=== PATIENT | male | born 2000 ===

== ENCOUNTER 2018-11-22 11:44 | Observation (INO) | payer MEDICAID ==
[2018-11-18 08:39] VITALS: BMI 29.5
[2018-11-22] MEDS ORDERED: ceFAZolin 2 GM in Sodium Chloride 0.9% 100 ML IVPB ONE (12:56)
[2018-11-22] MEDS ORDERED: Lidocaine 1% Inj (20ml) IJ ONE (12:56)
[2018-11-22] MEDS ORDERED: Bupivacaine 0.5% Inj(30mL) IJ ONE (12:56)
--- NOTE | 2018-11-22 13:00 | CP.SDSHP ---
Same Day Surgery H & P - History Proposed Procedure: Right flatfoot reconstruction Pre-Op Diagnosis: Right flatfoot deformity - Allergies Allergies: Allergies No Known Allergies Allergy (Verified 11/18/18 08:39) - Physical Exam Vital Signs: Vital Signs 11/22/18 11/22/18 11/22/18 12:14 12:20 12:28 Temperature 97.9 F 97.9 F Pulse Rate 63 67 67 Respiratory 18 18 Rate Blood Pressure 123/60 123/60 O2 Sat by Pulse 97 97 Oximetry - Date & Time Date: 11/22/18 Time: 13:00 Short Stay Discharge - Short Stay Discharge Admitting Diagnosis/Reason for Visit: M24.574/ M67.01/ M21.6X1/ M21.40/ Disposition: HOME/ ROUTINE
--- NOTE | 2018-11-22 13:03 | CP.PCM.PN ---
Subjective - Date & Time of Evaluation Date of Evaluation: 11/22/18 Time of Evaluation: 13:01 - Subjective Subjective: Podiatry progress note - Dr. Barnes 18M seen and evaluated in SDS preoperatively for right flat foot reconstruction. Patient is resting comfortably. States that he has been dealing with foot pain associated with his flat feet for his whole life. States he has tried conservative treatment including inserts and bracing but desired surgery. States that he has bilateral flat feet but his right is much more severe than his left. States his pain is worst when he is up on his feet walking or doing any activity. Denies n/v/f/c today and has no other acute complaints. NPO status confirmed with patient. Objective - Vital Signs/Intake and Output Vital Signs (last 24 hours): Temp Pulse Resp BP Pulse Ox 97.9 F 67 18 123/60 97 11/22/18 12:28 11/22/18 12:28 11/22/18 12:28 11/22/18 12:28 11/22/18 12:28 - Medications Medications: Current Medications Bupivacaine HCl (Marcaine 0.5%) 10 ml IJ ONCE ONE Stop: 11/22/18 12:57 Cefazolin Sodium 2 gm/ Sodium (Chloride) 100 mls @ 100 mls/hr IVPB ONCE ONE; Protocol Stop: 11/22/18 13:55 Lidocaine HCl (Lidocaine 1% (20ml)) 10 ml IJ ONCE ONE Stop: 11/22/18 12:57 - Constitutional Appears: Non-toxic - Head Exam Head Exam: ATRAUMATIC - Extremities Exam Additional comments: RLE focused VASC: DP and PT pulses palpable; cap refill <3 seconds to all digits; pedal hair present; no edema noted; temp gradient wnl DERM: no open lesions or wounds present; skin temp and turgor wnl ORTHO: flatfoot deformity noted; protrusion of the navicular preset; pain along PT tendon and at insertion; hindfoot valgus noted as well as forefoot abductus; medial column collapse NEURO: gross and protective sensation intact - Neurological Exam Neurological Exam: Alert, Awake, Oriented x3 - Psychiatric Exam Psychiatric exam: Normal Affect Assessment and Plan - Assessment and Plan (Free Text) Assessment: 18M with right flatfoot deformity Plan: Pt was seen and examined in SDS Pt NPO status was confirmed All pre-op testing and clearance in chart Pt has exhausted all conservative treatment at this time and is opting for surgical intervention Pt was explained procedure and post-operative course All pt's questions were answered to satisfaction No guarantees were made Pt understands all risks, benefits and complications of procedure Pt will follow-up with Dr. Barnes within 1 week of surgery
[2018-11-22] MEDS ORDERED: Bupivacaine HCl 0.5% PF (30 ml) Inj ONE ×2 (13:52→16:29)
[2018-11-22] MEDS ORDERED: Lactated Ringer's 1,000 ML IV ONE ×2 (14:02)
[2018-11-22] MEDS ORDERED: Propofol 10 mg/ml Inj (20 ML) ONE (14:04)
[2018-11-22] MEDS ORDERED: Midazolam 2 MG/2 ML VIAL ONE (14:05)
[2018-11-22] MEDS ORDERED: Succinylcholine Chloride 20 mg/ml Syr (5 ml) IV ONE (14:06)
[2018-11-22] MEDS ORDERED: Rocuronium 10 mg/ml (5 ml) ONE ×2 (14:16→17:02)
[2018-11-22] MEDS ORDERED: Desflurane Inhalation Anesthetic Liq (240 ml) ONE (15:14)
[2018-11-22] MEDS ORDERED: Dexamethasone 4 mg/1 ml ONE (15:48)
[2018-11-22] MEDS ORDERED: Lactated Ringer's 500 ML IV ONE (17:22)
[2018-11-22] MEDS ORDERED: Bupivacaine 0.25%-Epinephrine 1:200,000 (30 ml) Inj ONE (18:29)
[2018-11-22] MEDS ORDERED: Oxycodone/Acetaminophen 5/325 mg Tab PO PRN (19:05)
--- NOTE | 2018-11-22 19:11 | PCM.SURG1 ---
Surgeon's Initial Post Op Note - Surgeon's Notes Surgeon: Dr. Barnes DPM Enrollment Nurse: Dr. Yoo DPM, Dr. Morocho PGY3 Type of Anesthesia: General IV Pre-Operative Diagnosis: Right flatfoot deformity Operative Findings: see dictation Post-Operative Diagnosis: same Operation Performed: Right flatfoot reconstruction. Montgomery calcaneal osteotomy, medial calcaneal slide, FDL transfer, tendo-achilles lengthening Specimen/Specimens Removed: none Estimated Blood Loss: EBL {In ML}: 80 Blood Products Given: N/A Drains Used: Markus Al Post-Op Condition: Good Date of Surgery/Procedure: 11/22/18 Time of Surgery/Procedure: 19:12
[2018-11-22] MEDS ORDERED: HYDROmorphone 0.5 mg/0.5 ml ISec IVP PRN (19:53)
--- NOTE | 2018-11-22 19:55 | PCM.ANESB7 ---
Adductor Canal Block - Adductor Canal Block Date of Procedure: 11/22/18 Anesthiologist: Dr. Young Pre-Procedure Diagnosis: right flat foot Post-Procedure Diagnosis: right foot reconstruction Procedure Performed: Adductor Canal Block Right - Procedure Adductor Canal Block: The procedure was explained to the patient that it is for the post-operative pain management. Consent was obtained after a thorough discussion with the patient regarding the benefits and possible complications of local anesthetic adductor canal block of the femoral nerve. Standard monitors, as defined by the ASA, were applied to the patient. Time-out was held with the circulating nurse to confirm the appropriate block. After applying supplemental oxygen and administering IV Sedation as needed, the patient was placed in supine position with and the operative leg was flexed slightly at the knee and externally rotated as needed, and was kept anatomically stable. The mid-thigh of the _right lower extremity was exposed. The ultrasound transducer was then applied transversely along the medial aspect, about midway down the thigh and the femoral artery and vein were identified in appropriate relation with the sartorius muscle. At this time, the femoral nerve was visualized lateral to the femoral artery within the canal. After thorough identification, this area area was prepped with Chloroprep solution three times and 1 % Lidocaine was injected subcutaneously for topical anesthesia. At this point, a #22 gauge Stimuplex 4-inch needle was inserted in-plane in a [id number] orientation, and advanced toward the femoral nerve. Advancement was performed carefully under direct ultrasound visualization. Nerve stimulator was used and appropriate muscle twitch was obtained at current of __0.3___MA. After negative aspiration, __5___cc of _0.25____% ___bupiv was injected and this was followed with _25 cc of __0.5 % __bupiv . Under ultrasound guidance the local anesthetics were observed spreading around the femoral nerve. The needle was removed intact and sterile dressing was applied. The patient had stable vital signs, was conscious and in no apparent distress. The patient tolerated the femoral nerve block well with stable vital signs and was prepared for subsequent surgery
--- NOTE | 2018-11-22 19:57 | PCM.ANESB2 ---
Popliteal Nerve Block - Popliteal Nerve Block Date of Procedure: 11/22/18 Anesthesiologist: Dr. Young Pre-Procedure Diagnosis: right flat food Post-Procedure Diagnosis: right foot reconstruction Procedure Performed: Popliteal Nerve Block Right - Procedure Popliteal Nerve Block: This procedure was explained to the patient that it is for post-operative pain management. Consent was obtained after a thorough discussion with the patient regarding the benefits and possible complications of local anesthetic block of the sciatic nerve at the popliteal level. The patient was brought to the operating room and standard monitors are applied. Time-out was held with the circulating nurse to confirm the correct surgery and the appropriate block. After applying oxygen by nasal cannula and administering IV Sedation, patient's operative leg was gently raised and supported and the groove in between the biceps femoris and vastus lateralis muscles was carefully palpated. The skin approximately 8cm above the popliteal crease was then marked. The ultrasound transducer was then applied to the posterior thigh approximately 8cm above the popliteal crease in the transverse plane and the sciatic nerve before its division was visualized lateral to the popliteal artery and in between the bicep femoris and semimembranosus/semitendinosus muscles. After identification, the lateral portion of the thigh was prepped with Betadine solution three times and Lidocaine 1% was injected subcutaneously for topical anesthesia. At this point, a # 21 gauge Stimuplex insulated 4 inch needle was inserted into pre-marked area and advanced in a perpendicular direction. The needle was inserted above the ultrasound transducer in-plane towards the sciatic nerve in a [id number] direction. Needle advancement was performed carefully under direct ultrasound visualization. Nerve stimulator was used and dorsiflexion of the _right____ foot was elicited at a current of _0.3____ MA. After repeated negative aspiration, __5___cc of _0.25____ % ___bupiv was injected and this was flowed with _25 cc of 0.25 % __bupiv . Under ultrasound guidance the local anesthetics were observed surrounding sciatic nerve . The needle was removed intact and sterile dressing was applied. The patient tolerated the popliteal nerve block well with stable vital signs and was subsequently prepared for the surgery.
[2018-11-22 20:23] LABS: HEMOGLOBIN 14.5 g/dL (12.0-18.0); LYMPH # 1.2 K/uL (1.0-4.3); LYMPH % 5.5 % (20.0-40.0); MEAN CORPUSCULAR HEMOGLOBIN 29.2 pg (27.0-31.0); MEAN CORPUSCULAR HGB CONC 33.6 g/dL (33.0-37.0); MEAN PLATELET VOLUME 8.5 fl (7.2-11.7); MONO # 0.4 K/uL (0.0-0.8); MONO % 1.7 % (0.0-10.0); NEUT # 20.9 K/uL (1.8-7.0); NEUT % 92.8 % (50.0-75.0); PLATELET COUNT 279 K/uL (130-400); RBC 4.96 Mil/uL (4.40-5.90); RED CELL DISTRIBUTION WIDTH 13.2 % (11.5-14.5); WHITE BLOOD COUNT 22.6 K/uL (4.8-10.8)
[2018-11-22] MEDS: Lactated Ringer's 1,000 ML IV SCH (20:35)
[2018-11-22 20:44] LABS: ALB/GLOB RATIO 1.5 (1.0-2.1); ALBUMIN 4.1 g/dL (3.5-5.0); ALT/SGPT 35 U/L (21-72); AMYLASE 63 U/L (30-110); AST/SGOT 37 U/L (17-59); BLOOD UREA NITROGEN 11 mg/dl (9-20); CALCIUM 9.2 mg/dL (8.4-10.2); GFR NON-AFRICAN AMERICAN > 60
[2018-11-22 21:06] LABS: BANDS 3 % (0-2); EOSINOPHIL 1 % (0-7); LYMPHOCYTE 8 % (20-50); MONOCYTE 3 % (0-10); NEUTROPHIL 85 % (42-75); PLATELET ESTIMATE NORMAL (NORMAL); TOTAL CELLS COUNTED 100
[2018-11-22 21:07] LABS: HYPOCHROMIC SLIGHT; MICROCYTOSIS SLIGHT
[2018-11-22] MEDS ORDERED: HYDROmorphone 0.5 mg/0.5 ml ISec IVP STA (22:45)
[2018-11-23 00:02] VITALS: O2SAT 99
[2018-11-23 02:21] LABS: URINE BILIRUBIN NEGATIVE (NEGATIVE); URINE BLOOD NEGATIVE (NEGATIVE); URINE CLARITY CLEAR (Clear); URINE COLOR YELLOW (YELLOW); URINE GLUCOSE (UA) 50 mg/dL (NEGATIVE); URINE LEUKOCYTE ESTERASE NEG Leu/uL (Negative); URINE PROTEIN NEGATIVE (NEGATIVE); URINE UROBILINOGEN 0.2-1.0 mg/dL (0.2-1.0)
[2018-11-23] MEDS: Lactated Ringer's 1,000 ML IV SCH (06:37)
[2018-11-23] MEDS ORDERED: Povidone Iodine Topical 10% Sol ONE (08:25)
--- NOTE | 2018-11-23 09:07 | CP.PCM.PN ---
Subjective - Date & Time of Evaluation Date of Evaluation: 11/23/18 Time of Evaluation: 09:05 - Subjective Subjective: Podiatry progress note - Dr. Barnes 18M seen and evaluated at bedside POD 1 right foot flatfoot recon. Seen resting comfortably. States he is in a little pain which he describes as burning and states that the feeling in his leg and toes is coming back slowly. States he was able to eat without complications and void freely. States he felt mild nausea before going to sleep for the night but does not feel any symptoms this AM. De nies n/v/f/c/sob and has no other acute complaints. Objective - Vital Signs/Intake and Output Vital Signs (last 24 hours): Temp Pulse Resp BP Pulse Ox 98.3 F 102 H 20 141/72 99 11/23/18 06:45 11/23/18 06:45 11/23/18 06:45 11/23/18 06:45 11/23/18 06:45 Intake and Output: 11/23/18 11/23/18 06:59 18:59 Intake Total 300 Output Total 30 Balance 270 - Medications Medications: Current Medications Acetaminophen (Tylenol 325mg Tab) 650 mg PO Q4 PRN PRN Reason: Pain, Mild (1-3) Hydromorphone HCl (Dilaudid) 0.5 mg IVP Q6 PRN PRN Reason: Pain, severe (8-10) Lactated Ringer's (Lactated Ringer's) 1,000 mls @ 100 mls/hr IV .Q10H ERICKSON Last Admin: 11/23/18 06:37 Dose: 100 mls/hr Oxycodone/Acetaminophen (Percocet 5/325 Mg Tab) 1 tab PO Q4 PRN PRN Reason: Pain, moderate (4-7) Stop: 11/25/18 19:06 Last Admin: 11/23/18 08:20 Dose: 1 tab - Labs Labs: 11/22/18 20:15 11/22/18 20:15 - Constitutional Appears: Non-toxic - Head Exam Head Exam: ATRAUMATIC - Extremities Exam Additional comments: RLE focused exam VASC: DP and PT pulses palpable; cap refill <3 seconds to all digits; temp gradient wnl; mild edema noted globally to the foot and distal ankle DERM: incision sites are well coapted with no evidence of dehiscence; no erythema noted to the foot; drain in place, sanguinous leakage around the drain site; no streaking or signs of infection noted ORTHO: able to wiggle toes; mild pain on palpation of the rearfoot NEURO: gross and protective sensation intact - Neurological Exam Neurological Exam: Alert, Awake, Oriented x3 - Psychiatric Exam Psychiatric exam: Normal Affect, Normal Mood Assessment and Plan - Assessment and Plan (Free Text) Assessment: 18M POD 1 right flatfoot reconstruction Plan: -Patient in good/stable condition for discharge home -Pt to resume medications per medical reconciliation -Resume regular diet Please keep dressing clean, dry, & intact to surgical site -Use plastic bag over bandage for showering -Remain nonweightbearing to right foot with crutches for assistance in ambulation -Call clinic if you see signs of infection (redness, swelling, malodor) -Please make an appointment to see Dr. Barnes in office/clinic within 1 week for post-op check
[2018-11-23 09:29] LABS: BLOOD UREA NITROGEN 10 mg/dl (9-20); CALCIUM 8.6 mg/dL (8.4-10.2); GFR NON-AFRICAN AMERICAN > 60
--- NOTE | 2018-11-23 12:29 | CP.PCM.HP ---
<Luis Lei - Last Filed: 11/23/18 14:00> History of Present Illness - History of Present Illness History of Present Illness: 18 yo M with no significant pmhx presents for R flat foot reconstruction. Pt reports trying conservative measures such as inserts and bracing, however, pain and discomfort were significant affecting quality of life. Pt elected for surgical intervention of R foot. PMD: none surg: pilonidal cyst I&D 2017 fam: dm and mom with breast cancer mets soc: denies smoking, alcohol or illicit drugs Rx: otc pain management NKDA Present on Admission - Present on Admission Any Indicators Present on Admission: No History of DVT/PE: No History of Uncontrolled Diabetes: No Urinary Catheter: No Review of Systems - Musculoskeletal Musculoskeletal: Abnormal Gait Additional comments: bilateral flat feet Past Patient History - Past Medical History & Family History Past Medical History?: Yes - Past Social History Smoking Status: Never Smoked - CARDIAC Hx Cardiac Disorders: No - PULMONARY Hx Respiratory Disorders: No - NEUROLOGICAL Hx Neurological Disorder: No - HEENT Hx HEENT Problems: No - RENAL Hx Chronic Kidney Disease: No - ENDOCRINE/METABOLIC Hx Endocrine Disorders: No - HEMATOLOGICAL/ONCOLOGICAL Hx Blood Disorders: No Hx Anemia: No Hx Blood Transfusions: No - INTEGUMENTARY Hx Dermatological Problems: No - MUSCULOSKELETAL/RHEUMATOLOGICAL Hx Musculoskeletal Disorders: No - GASTROINTESTINAL Hx Gastrointestinal Disorders: No - GENITOURINARY/GYNECOLOGICAL Hx Genitourinary Disorders: No - PSYCHIATRIC Hx Emotional Abuse: No Hx Physical Abuse: No - SURGICAL HISTORY Hx Surgeries: No - ANESTHESIA Hx Anesthesia: No Hx Malignant Hyperthermia: No Has any member of the family had a problem w/ anesthesia?: No Meds Allergies/Adverse Reactions: Allergies Allergy/AdvReac Type Severity Reaction Status Date / Time No Known Allergies Allergy Verified 11/18/18 08:39 Physical Exam - Constitutional Appears: Well, No Acute Distress - Eye Exam Eye Exam: EOMI - ENT Exam ENT Exam: Mucous Membranes Moist - Respiratory Exam Respiratory Exam: Clear to Auscultation Bilateral, NORMAL BREATHING PATTERN. absent: Wheezes - Cardiovascular Exam Cardiovascular Exam: REGULAR RHYTHM, +S1, +S2 - GI/Abdominal Exam GI & Abdominal Exam: Normal Bowel Sounds, Soft. absent: Tenderness - Extremities Exam Extremities exam: Negative for: calf tenderness - Neurological Exam Neurological exam: Alert, Oriented x3 - Psychiatric Exam Psychiatric exam: Normal Affect, Normal Mood Results - Vital Signs Recent Vital Signs: Last Vital Signs Temp 98.3 F 11/23/18 06:45 Pulse 102 H 11/23/18 06:45 Resp 20 11/23/18 06:45 BP 141/72 11/23/18 06:45 Pulse Ox 99 11/23/18 06:45 - Labs Result Diagrams: 11/22/18 20:15 11/23/18 08:20 Labs: Laboratory Results - last 24 hr 11/22/18 11/22/18 11/23/18 20:15 20:15 02:15 WBC 22.6 H RBC 4.96 Hgb 14.5 Hct 43.1 MCV 87.0 MCH 29.2 MCHC 33.6 RDW 13.2 Plt Count 279 MPV 8.5 Neut % (Auto) 92.8 H Lymph % (Auto) 5.5 L [place] % (Auto) 1.7 Eos % (Auto) 0.0 Baso % (Auto) 0.0 Neut # (Auto) 20.9 H Lymph # (Auto) 1.2 [place] # (Auto) 0.4 Eos # (Auto) 0.0 Baso # (Auto) 0.0 Neutrophils % (Manual) 85 H Band Neutrophils % 3 H Lymphocytes % (Manual) 8 L Monocytes % (Manual) 3 Eosinophils % (Manual) 1 Platelet Estimate Normal Hypochromasia (manual) Slight Microcytosis (manual) Slight Sodium 136 Potassium 4.1 Chloride 102 Carbon Dioxide 19 L Anion Gap 19 BUN 11 Creatinine 1.0 Est GFR ( Amer) > 60 Est GFR (Non-Af Amer) > 60 Random Glucose 190 H Calcium 9.2 Total Bilirubin 0.9 AST 37 ALT 35 Alkaline Phosphatase 120 Total Protein 7.0 Albumin 4.1 Globulin 2.8 Albumin/Globulin Ratio 1.5 Amylase 63 Urine Color Yellow Urine Clarity Clear Urine pH 5.0 Ur Specific [place] 1.019 Urine Protein Negative Urine Glucose (UA) 50 Urine Ketones 20 Urine Blood Negative Urine Nitrate Negative Urine Bilirubin Negative Urine Urobilinogen 0.2-1.0 Ur Leukocyte Esterase Neg Urine RBC (Auto) < 1 Urine Microscopic WBC 1 11/23/18 08:20 WBC RBC Hgb Hct MCV MCH MCHC RDW Plt Count MPV Neut % (Auto) Lymph % (Auto) [place] % (Auto) Eos % (Auto) Baso % (Auto) Neut # (Auto) Lymph # (Auto) [place] # (Auto) Eos # (Auto) Baso # (Auto) Neutrophils % (Manual) Band Neutrophils % Lymphocytes % (Manual) Monocytes % (Manual) Eosinophils % (Manual) Platelet Estimate Hypochromasia (manual) Microcytosis (manual) Sodium 136 Potassium 3.8 Chloride 101 Carbon Dioxide 23 Anion Gap 16 BUN 10 Creatinine 0.7 L Est GFR ( Amer) > 60 Est GFR (Non-Af Amer) > 60 Random Glucose 179 H Calcium 8.6 Total Bilirubin AST ALT Alkaline Phosphatase Total Protein Albumin Globulin Albumin/Globulin Ratio Amylase Urine Color Urine Clarity Urine pH Ur Specific [place] Urine Protein Urine Glucose (UA) Urine Ketones Urine Blood Urine Nitrate Urine Bilirubin Urine Urobilinogen Ur Leukocyte Esterase Urine RBC (Auto) Urine Microscopic WBC Assessment & Plan - Assessment and Plan (Free Text) Assessment: 18 yo M with no significant pmhx presents for R flat foot reconstruction. Plan: R foot reconstruction -Podiatry: Dr. Barnes; surgery for 11/23/2018 -pain management -PT -pt medically optimized for surgery -Ancef 2 gm Case and plan d/w Dr. Bc Lei MD PGY-2 <Pardeep Yancey - Last Filed: 11/24/18 12:44> Results - Vital Signs Recent Vital Signs: Last Vital Signs Temp 98.8 F 11/23/18 15:08 Pulse 99 H 11/23/18 15:08 Resp 17 11/23/18 15:08 BP 130/75 11/23/18 12:00 Pulse Ox 99 11/23/18 12:00 - Labs Result Diagrams: 11/22/18 20:15 11/23/18 08:20 Labs: Laboratory Results - last 24 hr 11/22/18 11/23/18 11/23/18 20:15 08:20 08:20 RPR Nonreactive Hepatitis A IgM Ab Negative Hep Bs Antigen Negative Hep Bs Antibody Hep B Core IgM Ab Negative Hepatitis C Antibody Negative HIV 1&2 Antibody Screen Negative 11/23/18 10:03 RPR Hepatitis A IgM Ab Hep Bs Antigen Hep Bs Antibody Negative Hep B Core IgM Ab Hepatitis C Antibody HIV 1&2 Antibody Screen Assessment & Plan - Assessment and Plan (Free Text) Plan: Patient was personally seen and examined by me in rounds with residents. Available labs and diagnostic data reviewed. Case, Patient's condition and management plan discussed with residents in rounds. Agree with resident's progress note. Plan: As ordered.
[2018-11-23 12:58] LABS: HEPATITIS B SURFACE AG Negative (NEGATIVE)
[2018-11-23 13:04] LABS: HEPATITIS A IGM NEGATIVE (NEGATIVE); HEPATITIS B CORE AB NEGATIVE (NEGATIVE)
[2018-11-23 13:16] LABS: HEPATITIS C ANTIBODY NEGATIVE (NEGATIVE)
--- NOTE | 2018-11-23 14:11 | CP.PCM.DIS ---
Provider - Provider Date of Admission: 11/22/18 19:46 Attending physician: Pardeep Yancey MD Time Spent in preparation of Discharge (in minutes): 30 Diagnosis - Discharge Diagnosis (1) Flat foot [pes planus] (acquired), right foot Status: Acute Hospital Course - Lab Results Lab Results: Most Recent Lab Values WBC 22.6 K/uL (4.8-10.8) H 11/22/18 20:15 RBC 4.96 Mil/uL (4.40-5.90) 11/22/18 20:15 Hgb 14.5 g/dL (12.0-18.0) 11/22/18 20:15 Hct 43.1 % (35.0-51.0) 11/22/18 20:15 MCV 87.0 fl (80.0-94.0) 11/22/18 20:15 MCH 29.2 pg (27.0-31.0) 11/22/18 20:15 MCHC 33.6 g/dL (33.0-37.0) 11/22/18 20:15 RDW 13.2 % (11.5-14.5) 11/22/18 20:15 Plt Count 279 K/uL (130-400) 11/22/18 20:15 MPV 8.5 fl (7.2-11.7) 11/22/18 20:15 Neut % (Auto) 92.8 % (50.0-75.0) H 11/22/18 20:15 Lymph % (Auto) 5.5 % (20.0-40.0) L 11/22/18 20:15 [place] % (Auto) 1.7 % (0.0-10.0) 11/22/18 20:15 Eos % (Auto) 0.0 % (0.0-4.0) 11/22/18 20:15 Baso % (Auto) 0.0 % (0.0-2.0) 11/22/18 20:15 Neut # (Auto) 20.9 K/uL (1.8-7.0) H 11/22/18 20:15 Lymph # (Auto) 1.2 K/uL (1.0-4.3) 11/22/18 20:15 [place] # (Auto) 0.4 K/uL (0.0-0.8) 11/22/18 20:15 Eos # (Auto) 0.0 K/uL (0.0-0.7) 11/22/18 20:15 Baso # (Auto) 0.0 K/uL (0.0-0.2) 11/22/18 20:15 Neutrophils % (Manual) 85 % (42-75) H 11/22/18 20:15 Band Neutrophils % 3 % (0-2) H 11/22/18 20:15 Lymphocytes % (Manual) 8 % (20-50) L 11/22/18 20:15 Monocytes % (Manual) 3 % (0-10) 11/22/18 20:15 Eosinophils % (Manual) 1 % (0-7) 11/22/18 20:15 Platelet Estimate Normal (NORMAL) 11/22/18 20:15 Hypochromasia (manual) Slight 11/22/18 20:15 Microcytosis (manual) Slight 11/22/18 20:15 Sodium 136 mmol/l (132-148) 11/23/18 08:20 Potassium 3.8 MMOL/L (3.6-5.0) 11/23/18 08:20 Chloride 101 mmol/L (98-107) 11/23/18 08:20 Carbon Dioxide 23 mmol/L (22-30) 11/23/18 08:20 Anion Gap 16 (10-20) 11/23/18 08:20 BUN 10 mg/dl (9-20) 11/23/18 08:20 Creatinine 0.7 mg/dl (0.8-1.5) L 11/23/18 08:20 Est GFR ( Amer) > 60 11/23/18 08:20 Est GFR (Non-Af Amer) > 60 11/23/18 08:20 Random Glucose 179 mg/dL (75-110) H 11/23/18 08:20 Calcium 8.6 mg/dL (8.4-10.2) 11/23/18 08:20 Total Bilirubin 0.9 mg/dl (0.2-1.3) 11/22/18 20:15 AST 37 U/L (17-59) 11/22/18 20:15 ALT 35 U/L (21-72) 11/22/18 20:15 Alkaline Phosphatase 120 U/L (38-126) 11/22/18 20:15 Total Protein 7.0 G/DL (6.3-8.2) 11/22/18 20:15 Albumin 4.1 g/dL (3.5-5.0) 11/22/18 20:15 Globulin 2.8 gm/dL (2.2-3.9) 11/22/18 20:15 Albumin/Globulin Ratio 1.5 (1.0-2.1) 11/22/18 20:15 Amylase 63 U/L (30-110) 11/22/18 20:15 Urine Color Yellow (YELLOW) 11/23/18 02:15 Urine Clarity Clear (Clear) 11/23/18 02:15 Urine pH 5.0 (5.0-8.0) 11/23/18 02:15 Ur Specific [place] 1.019 (1.003-1.030) 11/23/18 02:15 Urine Protein Negative mg/dL (NEGATIVE) 11/23/18 02:15 Urine Glucose (UA) 50 mg/dL (NEGATIVE) 11/23/18 02:15 Urine Ketones 20 mg/dL (NEGATIVE) 11/23/18 02:15 Urine Blood Negative (NEGATIVE) 11/23/18 02:15 Urine Nitrate Negative (NEGATIVE) 11/23/18 02:15 Urine Bilirubin Negative (NEGATIVE) 11/23/18 02:15 Urine Urobilinogen 0.2-1.0 mg/dL (0.2-1.0) 11/23/18 02:15 Ur Leukocyte Esterase Neg Alan/uL (Negative) 11/23/18 02:15 Urine RBC (Auto) < 1 /hpf (0-3) 11/23/18 02:15 Urine Microscopic WBC 1 /hpf (0-5) 11/23/18 02:15 Hepatitis A IgM Ab Negative (NEGATIVE) 11/22/18 20:15 Hep Bs Antigen Negative (NEGATIVE) 11/22/18 20:15 Hep Bs Antibody Negative (NEGATIVE) 11/23/18 10:03 Hep B Core IgM Ab Negative (NEGATIVE) 11/22/18 20:15 Hepatitis C Antibody Negative (NEGATIVE) 11/22/18 20:15 HIV 1&2 Antibody Screen Negative (NEGATIVE) 11/23/18 08:20 - Hospital Course Hospital Course: 18 yo M with no significant pmhx presents for R flat foot reconstruction. R foot reconstruction -Podiatry: Dr. Barnes -pain management -PT -pt stable and cleared by podiatry to be discharged and follow up with Dr. Barnes in office ER precautions reviewed with pt and mom. care instructions reviewed by podiatry Case and plan d/w Dr. Bc Lei MD PGY-2 Discharge Exam - Head Exam Head Exam: ATRAUMATIC - Eye Exam Eye Exam: EOMI - Respiratory Exam Respiratory Exam: Clear to PA & Lateral, NORMAL BREATHING PATTERN. absent: Wheezes - Cardiovascular Exam Cardiovascular Exam: REGULAR RHYTHM, +S1, +S2 - GI/Abdominal Exam GI & Abdominal Exam: Normal Bowel Sounds, Soft. absent: Tenderness - Extremities Exam Additional comments: R lower extremity wrapped below knee. Drain removed per podiatry. Sensation intact. Pt able to move toes. - Neurological Exam Neurological exam: Abnormal Gait (s/p surgery), Alert, CN II-XII Intact, Oriented x3 - Psychiatric Exam Psychiatric exam: Normal Affect, Normal Mood Discharge Plan - Follow Up Plan Condition: GOOD Disposition: HOME/ ROUTINE Patient education suggested?: Yes Instructions: General Anesthesia, How to Use Crutches, Cephalexin, Ibuprofen, Oxycodone and Acetaminophen, Going Up and Down Curbs or Stairs With a Walker or Crutches Additional Instructions: Call Dr. Barnes clinic for appointment to see him in one week use crutches to walk non weight bearing to right foot do not get dressing wet, cover with plastic bag to shower Notify MD / seek medical attention if redness, swelling, or odor from surgical area or if pain is not relieved by RX OR FOR ANY OTHER CONCERNS Referrals: Jeremi Barnes I DPM [Staff Provider] -
[2018-11-23 15:09] VITALS: BP 130/75; RESP 17
[2018-11-23 17:22] VITALS: PULSE 99; TEMP 98.8
--- NOTE | 2018-11-23 17:22 | RAD ---
Date of service: 11/23/2018 PROCEDURE: Radiographs of the right calcaneus/hindfoot. HISTORY: post-operative COMPARISON: None available. TECHNIQUE: Frontal and lateral radiographs of the calcaneus. FINDINGS: Partially fenestrated screw traverses the calcaneus. Additional orthopedic hardware incompletely visualized. No evidence of orthopedic hardware failure. No calcaneal spur. IMPRESSION: Satisfactory postoperative status.
--- NOTE | 2018-11-23 17:25 | RAD ---
Date of service: 11/22/2018 PROCEDURE: Right Foot Radiographs. HISTORY: s/p right flatfoot reconstruction COMPARISON: November 22, 2018. Right heel reported separately TECHNIQUE: 3 views obtained. FINDINGS: BONES: Satisfactory position alignment of orthopedic hardware calcaneus, scaphoid and adjacent tarsal bones. JOINTS: No acute findings. SOFT TISSUES: Normal. OTHER FINDINGS: None. IMPRESSION: Satisfactory postoperative status.
--- NOTE | 2018-11-30 01:29 | OP ---
PROCEDURE DATE: 11/22/2018 SURGEON: Jeremi Barnes DPM ASSISTANTS: Ish Yoo DPM and Dr. Leonard Morocoh PREOPERATIVE DIAGNOSIS: Right foot pes planovalgus with posterior tibial tendon dysfunction. POSTOPERATIVE DIAGNOSIS: Right foot pes planovalgus with posterior tibial tendon dysfunction. PROCEDURES: 1. Aspiration of bone marrow calcaneus. 2. Tendon Achilles lengthening. 3. Montgomery calcaneal lengthening osteotomy with Synthes TiPEEK distraction wedge with autogenous and allogeneic bone graft. 4. Calcaneal medial elevation osteotomy with Synthes screw fixation. 5. Debridement of the posterior tibial tendon. 6. Flexor digitorum longus tendon transfer. ANESTHESIA: General. HEMOSTASIS: Thigh tourniquet at 325 mmHg. DESCRIPTION OF PROCEDURE: The patient was brought to the operating room and positioned supine on the operating room table. After induction of general anesthesia administered by the anesthesiologist, the patient was prepped and draped in the usual sterile manner. The leg was rotated off of the operating room table with a bump behind the leg. A small stab incision was made into the lateral calcaneus posterior and inferior to the lateral malleolus. A Jamshidi needle was then inserted, and approximately 10 mL of bone marrow was aspirated. The surgical site was irrigated with sterile saline solution, and the incision was repaired with a 3-0 nylon suture. The foot and the leg were then exsanguinated with an Esmarch bandage, and the tourniquet was inflated. The leg was rotated so that the medial aspect of the foot was facing up. Attention was directed to the Achilles tendon. Three small stab incisions were made into the Achilles tendon. The distal and proximal incisions were medial, and the central incision was lateral. At all of these locations, small stab incisions were made with a #15 blade and then utilizing blunt dissection, the incision was deepened to the level of the Achilles tendon. The Achilles tendon was confirmed, and then the 15-blade was inserted centrally and then exited medially at the distal and proximal incisions and laterally at the lateral incision. The foot was forcibly dorsiflexed, and the tendon Achilles lengthening was successfully completed. The surgical sites were irrigated with sterile saline solution. The incision sites were then repaired with a 3-0 nylon suture. The leg was then rotated back to its original position, and the leg was internally rotated. The OR table was positioned with the left shoulder slightly down. A linear incision was made over the calcaneal cuboid joint. Utilizing meticulous blunt dissection, the incision was then deepened through the subcutaneous layer. All bleeders encountered were clamped, cut and coagulated with a Bovie unit. The peroneal tendons were identified and retracted in a plantar wart direction. No major neurovascular structures were encountered. A linear incision was made into the periosteum, and the calcaneal cuboid joint was identified. The neck of the calcaneus was then identified. The area was marked approximately 14 mm proximal to the calcaneal cuboid joint and confirmed under fluoroscopy. Utilizing a power sagittal saw, a linear incision was made into the calcaneus parallel to the calcaneal cuboid joint. The osteotomy was completed with an osteotome. Utilizing Betoermann retractor, the osteotomy was opened and a trial size for the TiPEEK spacer was inserted. This was checked under fluoroscopy, and there was found to be a proper reduction of the talonavicular joint with lengthening of the lateral column. The trial was removed and the permanent wedge was then inserted. It was then clamped into a proper position. The bone marrow aspirate was then mixed with the allogenic bone chips, and the bone graft material was then inserted and augmented into the osteotomy in the calcaneus. A small plate was then inserted to expand the osteotomy site, and this was secured in place with locking and nonlocking screws. The surgical site was then irrigated with sterile saline solution. The periosteum was repaired with a 2-0 Vicryl suture. The skin was reapproximated with a 3-0 Vicryl subcutaneous suture, and then the skin was repaired with a 3-0 nylon suture. Attention was then directed to the proximal portion of the calcaneus. A linear incision was made into the body of the calcaneus from dorsal proximal to plantar distal. The incision was then deepened through the subcutaneous layer via sharp and blunt dissection. No major neurovascular structures were encountered. Duke retractors were then inserted at the dorsal and plantar aspects of the calcaneus. Utilizing a power sagittal saw, a linear osteotomy was then made into the tuberosity of the calcaneus. The osteotomy was completed at the medial side with an osteotome. Lamina spreaders were then inserted to distract the proximal portion of the calcaneus, and the proximal fragment was then transposed medially approximately 12 mm. Temporary fixation with one 0.062 K-wire was applied. A K-wire for the cannulated screw was then driven from the proximal calcaneus into the distal calcaneus. A small stab incision was made over this area. Utilizing blunt dissection, an incision was deepened through the subcutaneous layer and deepened through the calcaneus. The proper placement of the K-wire was confirmed with intraoperative fluoroscopy. One 6.5-mm distally threaded cannulated Synthes screw was then driven according to standard AO screw fixation principles. The osteotomy was placed under stress and found to be in strong stable alignment. The K-wire was then removed. A rotary bur was then used to smooth out the lateral portion of the calcaneus with the osteotomy had been performed. The surgical sites were then irrigated with sterile saline solution. The capsule was repaired with a 3-0 Vicryl suture. The subcutaneous layer was repaired with a 3-0 Vicryl subcutaneous suture, and the skin was repaired with a 3-0 nylon suture. The tourniquet was then deflated and approximately 20 minutes was allowed before the tourniquet was then re-inflated. An Esmarch bandage was used to exsanguinate the foot and the ankle, and the tourniquet was then inflated again. The leg was rotated so that the medial aspect of the foot was facing up, and the OR table was repositioned back to its original position. A curvilinear incision was made from slightly posterior to the medial malleolus to the navicular. Utilizing meticulous sharp and blunt dissection, the incision was deepened through the subcutaneous layer. The tendon sheaths for the posterior tibial tendon and the flexor digitorum longus were opened. The flexor retinaculum was then tagged with Vicryl sutures and incised. The posterior tibial tendon was inspected and found to be intact. There was slight synovitis which was debrided off of the tendon. The flexor digitorum longus was dissected free into the and then under direct visualization, the tendon was tenotomized at this location. The subtalar joint was inverted and the FDL tendon was tensioned and then utilizing an Arthrex tendon anchor, the tendon was transferred into the navicular. The FDL tendon was then tenodesed to the posterior tibial tendon distally utilizing 0 Vicryl suture. The surgical site was then irrigated with sterile saline solution. The flexor retinaculum was then repaired with a 2-0 Vicryl suture. The subcutaneous layer was repaired with a 3-0 Vicryl suture, and a Hemovac drain was then inserted. The skin was then repaired with a 3-0 nylon suture. A dry sterile compressive dressing was applied, and the tourniquet was inflated. There was noted to be instant hyperemic response to all five digits. A posterior splint was then applied with the ankle joint at 90 degrees, and the subtalar joint slightly inverted. The patient was stable throughout the entire procedure and tolerated the procedure well. The patient was returned to the recovery room in stable condition and then admitted for overnight observation in the hospital. Postprocedure instructions were given to the patient as well as prescriptions for antibiotics and pain medication with instruction of nonweightbearing with crutches. Jeremi Barnes DPM
== END 2018-11-23 19:30 | disposition home or self-care (01) ==
LOC: H.OPSURG 11:44 → H.PEDS 19:46
PROVIDERS: ADMIT Internal Medicine; ATTEND Internal Medicine
DX: M21.41 Flat foot [pes planus] (acquired), right foot (principal)
CPT/HCPCS: 27691; 28300; 36415; 64450; 73630; 73650; 80048; 80053; 80074; 81003; 82150; 85025; 86592; 86703; 86706; 97161; G0378; G8978; G8979; G8980; J0690; J1100; J1170; J2250; J2405; J2704; J2765; J3010; J7120